=== PATIENT | male | born 1950 ===

== ENCOUNTER → 2020-05-05 14:50 | Outpatient (CLI) | payer MEDICARE, OTHER, SELFPAY ==
--- NOTE | ~2020-05-05 | XR_ITS ---
EXAMINATION: XR hip RT 2V w AP pelvis DATE: 05/05/2020 15:04 INDICATION: Right hip pain. TECHNIQUE: An anteroposterior view pelvis and 2 views of right hip were obtained. COMPARISON: Left hip radiographs 02/14/2014 FINDINGS: There is a total left hip arthroplasty in near-anatomic alignment. No fracture. There is se jad lumbar spondylosis. There is moderate right hip osteoarthritis. IMPRESSION: 1. Moderate right hip osteoarthritis. 2. Total left hip arthroplasty in near-anatomic alignment. Reviewed, dictated and finalized at location A.
== END ==
PROVIDERS: PCP Family Medicine; Visit Provider Family Medicine
DX: M16.11 Unilateral primary osteoarthritis, right hip (principal)
CPT/HCPCS: 73502

== ENCOUNTER 2020-08-14 07:55 | Outpatient (CLI) | payer MEDICARE, OTHER, SELFPAY ==
--- NOTE | 2020-08-14 08:44 | ECG_ITS ---
Measurements Intervals [place] Rate: 67 P: 58 DE: 143 QRS: 48 QRSD: 101 T: 43 QT: 366 QTc: 387 Interpretive Statements SINUS RHYTHM BASELINE ARTIFACT- I, II, III NORMAL ECG Electronically Signed On 08-14-2020 9:55:26 CDT by Russell Crowell D.O.
[2020-08-14 09:09] LABS: Basophils Percent Auto 0.4 % (0.2-1.2); Eosinophils Absolute Auto 0.1 K/mm3 (0-0.3); Eosinophils Percent Auto 1.1 % (0-4.4); Hematocrit 44.9 % (42.0-52.0); Hemoglobin 15.1 g/dL (14.0-18.0); Immature Granulocyte Absolute 0.02 K/mm3 (0.00-0.031); Immature Granulocyte Percent A 0.3 % (0-0.5); Mean Corpuscular HGB Conc 33.6 g/dl (32-36); Mean Corpuscular Hemoglobin 33.4 pg (26-34); Mean Corpuscular Volume 99.3 fl (80-100); Mean Platelet Volume 10.1 fl (7.4-10.4); Monocytes Absolute Auto 0.5 K/mm3 (0.1-0.6); Neutrophils Absolute Auto 5.6 K/mm3 (1.3-6.7); Neutrophils Percent Auto 75.2 % (45.5-73.1); Platelet Count Result 246 k/mm3 (150-375); Red Blood Count 4.52 M/mm3 (4.6-6.20); Red Cell Distribution Width 13.4 % (11.5-14.5); White Blood Count 7.5 K/mm3 (4.5-10.0)
[2020-08-14 09:12] LABS: Add Urine Microscopic? NO; Appearance Urine Clear (Clear); Bilirubin Urine Negative (Negative); Blood Urine Negative (Negative); Color Urine Straw (Yellow); Glucose Urine UA Negative (Negative); Ketones Urine Negative (Negative); Leukocyte Esterase Ur Negative LEU/UL (Negative); Nitrate Urine Negative (Negative); Protein Urine Negative (Negative); Urobilinogen Urine Negative mg/dL (<2.0)
[2020-08-14 09:18] LABS: INR 1.1; Prothrombin Time 13.9 Seconds (11.1-14.7)
[2020-08-14 09:19] LABS: Partial Thromboplastin Time 27.7 SECONDS (22.3-36.8)
[2020-08-14 09:23] LABS: Albumin Level 4.5 g/dL (3.5-5.1); Anion Gap 8 mmol/L (8-16); Blood Urea Nitrogen 9 mg/dL (9-20); Calcium 9.5 mg/dL (8.4-10.2); Carbon Dioxide 25 mmol/L (22-30); Chloride 104 mmol/L (98-107); Estimated Glomerular Filt Rate > 60; Glucose 96 mg/dL (75-110); Potassium 4.5 mmol/L (3.4-5.0); Sodium 137 mmol/L (137-145)
[2020-08-14 09:30] LABS: Specific Grav Ur 1.004 (1.001-1.035)
[2020-08-14 10:02] LABS: Urine Cotinine NEGATIVE
[2020-08-14 10:23] LABS: Hemoglobin A1C 5.5 % (<5.7)
== END 2020-08-14 07:56 | disposition home or self-care (01) ==
PROVIDERS: PCP Family Medicine; Visit Provider Orthopaedic Surgery
DX: Z01.818 Encounter for other preprocedural examination (principal); M16.11 Unilateral primary osteoarthritis, right hip; Z51.81 Encounter for therapeutic drug level monitoring; Z79.899 Other long term (current) drug therapy
CPT/HCPCS: 80048; 80307; 81003; 82040; 83036; 85025; 85610; 85730; 87081; 93005

== ENCOUNTER 2020-09-03 00:29 | Day surgery (SDC) | payer MEDICARE, OTHER, SELFPAY ==
[2020-08-14 08:05] VITALS: BMI 19.1
[2020-08-14 08:42] VITALS: BP 119/79; PULSE 87; RESP 16; TEMP 37.2; O2SAT 98
--- NOTE | 2020-09-02 08:59 | WPDANESEPPF ---
Anes - Initial Pre Proc Eval Procedure: Operation Date: 09/03/20 07:30 Proposed Procedures p Right Total Hip Arthroplasty - Igor Payne MD Date/Time: 09/02/20 08:59 Surgeon: Igor Payne MD Pre Op Diagnosis: Right Hip DJD Patient Data Age: 70 Gender: M Height: 1.75 m Weight: 58.7 kg Last Vital Signs Temp 37.2 C 08/14/20 08:42 Pulse 87 08/14/20 08:42 Resp 16 08/14/20 08:42 BP 119/79 08/14/20 08:42 Pulse Ox 98 08/14/20 08:42 Allergies Allergy/AdvReac Type Severity Reaction Status Date / Time No Known Allergies Allergy Unknown Verified 09/03/20 06:36 Home Medications Medication Instructions Recorded Confirmed Type ascorbic acid (vitamin C) 500 mg PO DAILY 08/14/20 08/14/20 History meloxicam 15 mg PO PRN PRN 08/14/20 08/14/20 History Patient hx anesthesia problems: none Family hx anesthesia problems: none PMFSH Surgical History Surgical History (Updated 06/24/20 @ 08:57 by Victorina Parker, RT(R)) History of neck surgery 2018 History of total left hip arthroplasty Social History Social History (Updated 09/03/20 @ 07:22 by Luiz Pena DO) Second hand tobacco smoke exposure: No Additional smoking assessment comments: DENIES ANY FORM OF TOBACCO USE Alcohol intake: current Drinks per week: 6 Alcohol use details: 2 beers/day Substance use: never Substance use type: does not use Living arrangements: with family Gender identity (if verbalized by the patient): Male Spiritual care concerns: No Anes - Eval Final PreProcedure Day of Procedure 09/02/20 08:59 Patient weight: thin Heart: regular rate and rhythm Lungs: clear to auscultation and normal air movement Airway: Mallampati scale class II Neurological: alert and oriented Last oral intake: >/= 8 hours ASA classification: II Emergent: no Anesthetic plan: proceed Anesthesia type and monitoring: general ETT and standard monitoring Informed Consent: The patient's anesthetic plan and its attendant risks and benefits were discussed with the patient/family/POA. Questions were solicited and answers provided to the satisfaction of the patient/family/POA.
[2020-09-03] VITALS (11 sets, daily range): BP systolic 104–134; BP diastolic 61–85; PULSE 60–92; RESP 14–20; TEMP 36.3–37.2; O2SAT 94–100
--- NOTE | ~2020-09-03 | XR_ITS ---
EXAMINATION: XR hip RT 1V DATE: 09/03/2020 10:37 INDICATION: Postoperative evaluation following right total hip arthroplasty TECHNIQUE: Anteroposterior and lateral views of the right hip were obtained. COMPARISON: Radiographs dated 06/23/2020 FINDINGS: Interval placement of a noncemented right total hip arthroplasty which appears well seated in near an atomic alignment. Expected subcutaneous gas in the postoperative bed. No fractures identified. IMPRESSION: 1. Right total hip arthroplasty, negative for postoperative purposes. Reviewed, dictated and finalized at location A.
[2020-09-03] MEDS: ACETAMINOPHEN 500 MG TABLET 1000 MG PO (06:40)
[2020-09-03] MEDS: LACTATED RINGERS 1,000 ML 30 ML IV CONT ×2 (07:00→10:18)
[2020-09-03] MEDS: TRANEXAMIC ACID 1,000MG/ISO100 1,000 MG/100 ML BAG 200 MG IVPB (07:08)
--- NOTE | 2020-09-03 07:15 | WPDHPUPDATE1 ---
History and Physical Update Update Date/Time: 09/03/20 07:15 History and Physical has been reviewed, including an updated exam of the patient. There are NO changes in the patient's condition. Risks, benefits, and alternatives have been discussed and questions answered. Patient agrees to proceed with procedure.
[2020-09-03] MEDS: ceFAZolin 2 GM/D5W 50 ML 2 GM/50 ML BAG IVPB (07:39)
--- NOTE | 2020-09-03 10:26 | W.PM.PROC2 ---
Procedure Note - Detailed Date of Procedure 09/03/20 Pre-op Diagnosis Right Hip DJD Post-op Diagnosis same Procedure Performed R [facility]ADE[facility] Surgeon Igor Payne MD Anesthesia general Description of Procedure THE PATIENT WAS TAKEN TO THE OPERATING ROOM IN STABLE CONDITION AND WAS PLACED IN THE LATERAL DECUBITUS AND THE RIGHT LOWER EXTREMITY WAS PREPPED AND DRAPED IN THE STERILE FASHION. INCISION WAS MADE IN THE POSTERIOR LATERAL SIDE OF THE HIP, DOWN TO THE FASCIA LAYER. THE FASCIA WAS INCISED. THE HIP WAS EXPOSED. THE SHORT EXTERNAL ROTATORS WERE EXPOSED. THE SCIATIC NERVE WAS IDENTIFIED. THERE WAS A HIGH BIFURCATION OF THE NERVE. INCISION WAS MADE THROUGH THE SORT EXTERNAL ROTATORS AND THE CAPSULE OF THE HIP JOINT. THE HIP WAS DISLOCATED. AN OSTEOTOMY WAS MADE TO THE FEMORAL NECK ABOUT 1 CM PROXIMAL TO THE LESSER TROCHANTER. THE ACETABULUM WAS EXPOSED. THERE WAS SEVERE DJD SEEN. BEGINNING WITH A 44 REAMER THE ACETABULUM WAS REAMED TO 53 MM. A 53 MM TRIAL WAS PLACED IN 35 DEG OF ABDUCTION AND ANTEVERSION WAS IN ALIGNMENT WITH THE TRANS ACETABULAR LIGAMENT. THE FIT WAS EXCELLENT. THE TRIAL WAS REMOVED. A 54 MM BIOMET G7 COMPONENT WAS THEN TAPPED IN TO PLACE IN 35 DEG OF ABDUCTION AND ANTEVERSION IN ALIGNMENT WITH THE TRANSVERSE ACETABULAR LIGAMENT. THE FIT WAS EXCELLENT. THE ACETABULAR LINER WAS PLACED AND CHECKED FOR STABILITY. NEXT THE FEMUR WAS PREPARED WITH INITIAL CANAL FINDER THEN SEQUENTIAL BROACHING WITH A TAPERLOC HIP SYSTEM, UNTIL A 9 BROACH FIT WELL IN 15 OF ANTEVERSION. A +3 HIGH OFFSET NECK WITH 36 MM HEAD TRIAL WAS PLACED. THE WALTER TEST WAS EXCELLENT AND THE STABILITY IN FLEXION AND ROTATION WAS EXCELLENT. LEG LENGTHS WERE GROSSLY EQUAL. TRIALS WERE REMOVED. A BIOMET TAPERLOC 9 STEM WAS PLACED WITH A HIGH OFFSET NECK THE FIT WAS EXCELLENT IN 15 DEG OF ANTEVERSION. A +3 CERAMIC 36 MM FEMORAL HEAD WAS PLACED. THE HIP WAS TRIALED AND THE STABILITY WAS EXCELLENT WERE THE LEG LENGTHS AND THE SCHUK TEST. THE WOUND WAS IRRIGATED WITH STERILE BETADINE AND WATER FOR 3 MIN. THEN WASHED AGAIN. THE CAPSULE AND THE EXTERNAL ROTATORS WERE APPROXIMATED WITH NUMBER 1 VICRYL. THE FASCIA WITH No 2 QUIL AND THE SUB CUTANEOUS LAYER WITH 2-0 ABSORBABLE SUTURE WITH A RUNNING 3-0 SUBCUTICULAR LAYER WELL. DERMABOND WAS PLACED AND STERILE DRESSING WAS APPLIED. PATIENT WAS PLACED BACK ON TO THE SUPINE POSITION AND WAS EXTUBATED Estimated Blood Loss -150 Drains No Complications No immediate complications Condition stable Disposition PACU
--- NOTE | 2020-09-03 13:40 | SUR.PHASEII ---
1330 Patient did well with pt and is ok for discharge. may bear weight as tolerated with walker.
--- NOTE | 2020-09-03 13:46 | SUR.PHASEII ---
[id number] patient is ok to be discherged per dr celeste per anesthesia orders
== END 2020-09-03 14:05 | disposition home or self-care (01) ==
PROVIDERS: PCP Family Medicine; Visit Provider Orthopaedic Surgery
PROC: (CPT 27130; principal; 2020-09-03 07:30)
DX: M16.11 Unilateral primary osteoarthritis, right hip (principal)
CPT/HCPCS: 27130; 36415; 73501; 86850; 86900; 86901; 97161; A9270; C1713; C1776; J0171; J0690; J1100; J1170; J2250; J2270; J2370; J2405; J2704; J2710; J2795; J3010; J7120